=== PATIENT | male | born 1975 | race Caucasian/White ===

== ENCOUNTER 2017-04-21 11:36 | Emergency (ER) | payer OTHER, MEDICAID ==
[2017-04-21 12:08] VITALS: BP 137/94; PULSE 70; RESP 18; TEMP 97.3; O2SAT 97
--- NOTE | 2017-04-21 12:13 | EDPHY ---
H & P Time Seen by Provider: 04/21/17 11:45 HPI/ROS: HPI Limping on right side. 41-year-old mentally challenged male by private vehicle with his caregiver. Caregiver reports that the patient fell out of bed about a week ago. He has a right-sided hemiparesis. He does ambulate without assistance according to the caregiver. He seemed fine through the week but started complaining of right knee and possibly right hip pain today. It is difficult to get history from him according to his caregiver. His caregiver thinks he has been favoring and limping on the right lower extremity more than usual. No other known history of acute trauma. ROS: Constitutional: No fever, no chills. No weakness. Musculoskeletal: No back pain. No neck pain. As above, denies other extremity pain. Skin: No lacerations or abrasions. Neurological: No headache. No new focal weakness or altered sensation. 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 Social history: No alcohol, no smoking. Lives at home with endless steamer tender grandmother. Physical Exam: General Appearance: Alert, no distress. Response to basic questions with yes and no. Caregiver reports this is baseline. This patient appears well- hydrated and well-nourished. Eyes: Pupils equal and round no pallor or injection. No lid edema, erythema or injection. Neurological: Motor sensory function is grossly intact. Cranial nerves are normal. Skin: Warm and dry, no rashes. Musculoskeletal: Head: Normocephalic atraumatic. Neck is supple and nontender. Examination of the right knee; no effusion. No erythema, warmth, ecchymosis or other soft tissue changes. The right knee joint is stable to valgus and varus stress testing as well as anterior and posterior drawer testing. There is no pain on palpation of the medial and lateral joint lines. Right ankle is nontender on palpation of all malleoli, no associated swelling, erythema, ecchymosis. The bony aspects of the foot are nontender on palpation without deformity or other abnormality. The right hip ranges in flexion and extension without significant pain. There is no pain elicited by axial loading of the right hip as well as internal and external rotation. The right lower extremity is atrophied relative to the left lower extremity secondary to the patient's chronic condition. The right lower extremity is otherwise neurovascularly intact. Extremities are symmetrical. All joints range without pain or impingement. Psychiatric: No agitation. No depression. Database: EKG: Imaging: Right knee x-ray series: Osteoporotic bone. Negative for acute fracture, subluxation, dislocation. Interpreted by me. Right hip x-ray series: Questionable nondisplaced fracture involving the inferior pubic ramus, right side. This may also represent osteophytic changes or an old injury. Otherwise normal study. Interpreted by me. Procedures: Emergency department course: After my evaluation, the patient was sent for x-rays as above. When I had the results of his x-rays I discussed these with the patient and the caregiver. Plan will be to have the patient follow up with his primary care physician, Dr. Andres Sanchez, on Monday or Monday of next week for re-evaluation. He is able to bear weight on the right lower extremity without significant difficulty or discomfort in the emergency department. Further imaging can be ordered at the time of follow-up as needed. I discussed return to emergency department precautions with the caregiver. All of her questions were answered. The patient was discharged home in good condition. Differential Diagnosis: The differential diagnosis on this patient includes but is not limited to right knee sprain, inferior pubic ramus fracture. Right hip subluxation, dislocation , right knee fracture/dislocation, right ankle fracture/dislocation unlikely. This represents a partial list of diagnoses considered. These considerations are based on history, physical exam, past history, reassessment and diagnostic testing. Constitutional: Initial Vital Signs Temperature (C) 36.3 C 04/21/17 11:58 Heart Rate 70 04/21/17 11:58 Respiratory Rate 18 04/21/17 11:58 Blood Pressure 137/94 H 04/21/17 11:58 O2 Sat (%) 97 04/21/17 11:58 O2 Delivery Mode Room Air Allergies/Adverse Reactions: No Known Allergies Allergy (Verified 04/21/17 12:03) Home Medications: Medication Instructions Recorded Celontin 07/29/16 Depakote ER 500 MG (*) 07/29/16 Dilantin 07/29/16 Synthroid 07/29/16 Losartan Potassium 04/21/17 Departure - Departure Disposition: Home, Routine, Self-Care Clinical Impression: Pain of right lower extremity Condition: Good Instructions: Knee Pain (ED), Leg Pain (ED) Additional Instructions: Read and follow provided instructions. Follow-up with your primary care physician, Dr. Andres Sanchez, on Monday or Monday of next week for re-evaluation. X-rays can be repeated or additional x- rays can be obtained as needed. Weight-bearing to the right lower extremity as tolerated. If able to swallow pills; Ibuprofen dosin mg every 6 hours with meals for the next 3 days only. Return to the emergency department for worsening pain or other serious concerns. Referrals: Andres Sanchez MD [Primary Care Provider] - As per Instructions
== END 2017-04-21 12:50 | disposition home or self-care (01) ==
LOC: CED 11:36
DX: S89.91XA Unspecified injury of right lower leg, initial encounter (principal); I10 Essential (primary) hypertension; W06.XXXA Fall from bed, initial encounter
CPT/HCPCS: 73502-PO; 73564-PO

== ENCOUNTER → 2017-04-28 | Outpatient (CLI) | payer OTHER, MEDICAID | LOC: CIMAGING 11:29 | PROVIDERS: ATTEND Family Medicine | DX: S32.501D Unspecified fracture of right pubis, subsequent encounter for fracture with routine healing (principal) | CPT/HCPCS: 72170-PO ==